=== PATIENT | male | born 1995 | race Caucasian/White ===

== ENCOUNTER 2019-08-10 09:21 | Emergency (ER) | payer BC, OTHER ==
[~2019-08-10] VITALS: Ht 165.1 cm; Wt 71.2 kg
[2019-08-10] MEDS ORDERED: IV NS 0.9% 1,000 ML BAG IV ONE (09:30)
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
[2019-08-10 09:50] LABS: BASOPHILS # (AUTO) 0.1 /CMM (0.0-0.2); BASOPHILS % (AUTO) 1.4 % (0.0-2.0); EOSINOPHILS % (AUTO) 1.1 % (0.0-6.0); HEMATOCRIT 46 % (39-51); LYMPHOCYTES # (AUTO) 1.1 /CMM (0.8-4.8); LYMPHOCYTES % (AUTO) 21.3 % (20.0-44.0); MEAN CORPUSCULAR HGB CONC 35 g/dl (31.0-36.0); MEAN CORPUSCULAR VOLUME 87 fL (80-96); MONOCYTES # (AUTO) 0.3 /CMM (0.1-1.30); MONOCYTES % (AUTO) 6.1 % (2.0-12.0); NEUTROPHILS # (AUTO) 3.8 /CMM (1.8-8.9); NEUTROPHILS % (AUTO) 70.1 % (43.0-81.0); PLATELET COUNT (AUTO) 239 /CMM (150-450); RED BLOOD CELL COUNT(AUTO) 5.24 MIL/uL (4.5-6.0); WHITE BLOOD COUNT (AUTO) 5.4 K/uL (4.3-11.0)
[2019-08-10 10:06] LABS: CALCIUM, SERUM 9.4 mg/dL (8.5-10.1); CREATININE 1.2 mg/dL (0.6-1.3); POTASSIUM 4.2 mmol/L (3.5-5.1)
[2019-08-10 10:12] LABS: ALBUMIN 4.5 g/dL (3.4-5.0); TOTAL PROTEIN, SERUM 7.8 g/dL (6.4-8.2)
--- NOTE | 2019-08-10 11:00 | NUR ---
PATIENT REFUSED ANY SEIZURE MEDICATIONS. EXPLAINED RISKS AND BENEFITS PATIENT VERBALIZED UNDERSTANDING. IV removed. Catheter intact and site benign. Pressure and 4x4 applied to site. No bleeding noted.Patient discharged to home in stable condition. Written and verbal after care instructions given. Patient verbalizes understanding of instruction.
[2019-08-10 11:59] VITALS: BP 134/78
== END 2019-08-10 11:59 | disposition home or self-care (01) ==
LOC: ER 09:23
DX: G40.909 Epilepsy, unspecified, not intractable, without status epilepticus (principal); F10.10 Alcohol abuse, uncomplicated; Y90.9 Presence of alcohol in blood, level not specified; Z88.1 Allergy status to other antibiotic agents
CPT/HCPCS: 36415; 80053; 85025; 99283; J7030

== ENCOUNTER 2019-08-10 11:49 | Emergency (ER) | payer BC ==
[~2019-08-10] VITALS: Ht 165.1 cm; Wt 67.1 kg
[2019-08-10] MEDS ORDERED: LORAZEPAM INJ 2 MG/ML VIAL ONE (11:52)
--- NOTE | 2019-08-10 11:53 | NUR ---
Seizure "witnessed Sz from waiting area while waiting for ride home" Patient found on the floor, currently having seizure. Patient's head protected, turned patient on his side. When patient ceased seizing transferred to [facility]. Transferred to room and established an IV line. Oxygen applied 4lpm via simple mask. Patient still post-ictal. Attached to the monitor. Seizure precaution observed. No head injury noted.
--- NOTE | 2019-08-10 11:55 | NUR ---
IV LINE ON RAC G20, ATIVAN 2MG IV GIVEN.
[2019-08-10] MEDS ORDERED: LEVETIRACETAM (500MG) 500 MG in IV NS 0.9% 100 ML IV SCH (12:00)
[2019-08-10] MEDS ORDERED: LORAZEPAM INJ 2 MG/ML VIAL IV ONE (12:00)
--- NOTE | 2019-08-10 13:47 | NUR ---
PATIENT ALERT AND ORIENTED, VERBALLY RESPONSIVE. RECEIVED IV MEDICATIONS. NO DISTRESS NOTED. VITALS STABLE.
--- NOTE | 2019-08-10 15:02 | NUR ---
PATIENT AMBULATORY, ASSISTED TO RESTROOM.
--- NOTE | 2019-08-10 15:35 | NUR ---
PATIENT WENT BACK TO SLEEP. EASILY AROUSABLE.
--- NOTE | 2019-08-10 18:19 | NUR ---
patient spoke with sister, sister will pick him up.
--- NOTE | 2019-08-10 18:55 | NUR ---
IV removed. Catheter intact and site benign. Pressure and 4x4 applied to site. No bleeding noted. Patient discharged to home in stable condition. Written and verbal after care instructions given. Patient verbalizes understanding of instruction. Patient picked up by sister.
[2019-08-10 18:58] VITALS: BP 128/87
== END 2019-08-10 18:58 | disposition home or self-care (01) ==
LOC: ER 11:50
DX: G40.909 Epilepsy, unspecified, not intractable, without status epilepticus (principal); F10.10 Alcohol abuse, uncomplicated; Y90.9 Presence of alcohol in blood, level not specified; Z88.1 Allergy status to other antibiotic agents
CPT/HCPCS: 70450; 96365; 96375; 99284; J1953; J2060; J7030